=== PATIENT | male | born 1995 | race Caucasian/White ===

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

== ENCOUNTER 2020-07-12 19:42 | Emergency (ER) | payer SELFPAY ==
[~2020-07-12] VITALS: Ht 177.8 cm; Wt 63.3 kg
--- NOTE | 2020-07-12 20:31 | PHYS DOC ---
Past History Past Medical History: No Pertinent History (LORENA DEL VALLE APRN) Past Surgical History: No Surgical History (LORENA DEL VALLE APRN) Alcohol Use: Occasionally Drug Use: None (LORENA DEL VALLE APRN) General Adult EDM: Chief Complaint: OVERDOSE HPI: HPI: Patient is a 25-year-old male who presents with OD. Patient states that he took an Oxy this afternoon that he bought from someone on the street. Mom states "my daughter went to go check on him and was unable to wake him up". Daughter called EMS and patient was given Narcan. Mom brought patient to the emergency room to be monitored. 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 Patient denies wanting help for drug addiction. Patient states "I he can quit using on my own". Patient denies any medical history. Patient denies overdosing in the past. Patient is alert and oriented at this time. (LORENA DEL VALLE APRN) Review of Systems: Review of Systems: Constitutional: Denies fever or chills Eyes: Denies change in visual acuity HENT: Denies nasal congestion or sore throat Respiratory: Denies cough or shortness of breath Cardiovascular: Denies chest pain or edema GI: Denies abdominal pain, nausea, vomiting, bloody stools or diarrhea : Denies dysuria Musculoskeletal: Denies back pain or joint pain Integument: Denies rash Neurologic: Denies headache, focal weakness or sensory changes Endocrine: Denies polyuria or polydipsia Lymphatic: Denies swollen glands Psychiatric: Denies depression or anxiety (LORENA DEL VALLE APRN) Allergies: Allergies: Allergies Coded Allergies Type Severity Reaction Last Updated Verified No Known Drug Allergies 12/22/16 No (LORENA DEL VALLE APRN) Physical Exam: PE: Constitutional: Well developed, well nourished, no acute distress, non-toxic appearance. [] HENT: Normocephalic, atraumatic, bilateral external ears normal, oropharynx moist, no oral exudates, nose normal. [] Eyes: PERRLA, EOMI, conjunctiva normal, no discharge. [] Neck: Normal range of motion, no tenderness, supple, no stridor. [] Cardiovascular:Heart rate regular rhythm, no murmur [] Lungs & Thorax: Bilateral breath sounds clear to auscultation [] Abdomen: Bowel sounds normal, soft, no tenderness, no masses, no pulsatile masses. [] Skin: Warm, dry, no erythema, no rash. [] Back: No tenderness, no CVA tenderness. [] Extremities: No tenderness, no cyanosis, no clubbing, ROM intact, no edema. [] Neurologic: Alert and oriented X 3, normal motor function, normal sensory function, no focal deficits noted. [] Psychologic: Affect normal, judgement normal, mood normal. [] (LORENA DEL VALLE APRN) PE: Constitutional: Well developed, well nourished, no acute distress, non-toxic appearance HENT: Normocephalic, atraumatic Eyes: PERRL, EOMI, conjunctiva normal, no discharge, no nystagmus Neck: Normal range of motion, no tenderness, supple Lungs & Thorax: No respiratory distress, equal chest rise and fall Abdomen: Soft, no tenderness Skin: Warm, dry, no erythema, no rash Extremities: No tenderness, ROM intact, no edema Neurologic: Alert and oriented X 3, normal motor function, normal sensory function, no focal deficits noted Psychologic: Affect normal, judgment normal (YOANDY CLINTON DO) EKG: EKG: [] (LORENA DEL VALLE APRN) Radiology/Procedures: Radiology/Procedures: [] (LORENA DEL VALLE APRN) Radiology/Procedures: PROCEDURE: CHEST AP ONLY Study: XR CHEST 1V Indication: Leukocytosis. Comparison: None. Findings: Hazy/streaky densities at the left more so than right perihilar region. No dense consolidation. No pleural effusion or pneumothorax. Normal size of the cardiomediastinal silhouette. Impression: Streaky densities emanating from the left more so than right tosha. An infectious process such as viral bronchitis is a consideration. No confluent infiltrate to suggest an organizing pneumonia at this time. Electronically signed by: EVELYN RUSSELL MD (07/13/2020 12:30 AM) [facility] (YOANDY CLINTON DO) Heart Score: Risk Factors: Risk Factors: DM, Current or recent (<one month) smoker, HTN, HLP, family history of CAD, obesity. Risk Scores: Score 0 - 3: 2.5% MACE over next 6 weeks - Discharge Home Score 4 - 6: 20.3% MACE over next 6 weeks - Admit for Clinical Observation Score 7 - 10: 72.7% MACE over next 6 weeks - Early Invasive Strategies (LORENA DEL VALLE APRN) Course & Med Decision Making: Course & Med Decision Making Pertinent Labs and Imaging studies reviewed. (See chart for details) Patient is a 25-year-old male who presents with OD. Patient states that he took an Oxy this afternoon that he bought from someone on the street. Mom states "my daughter went to go check on him and was unable to wake him up". Daughter called EMS and patient was given Narcan. Mom brought patient to the emergency room to be monitored. 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 Patient denies wanting help for drug addiction. Patient states "I he can quit using on my own". Patient denies any medical history. Patient denies overdosing in the past. Patient is alert and oriented at this time. Patient is alert and oriented at this time, patient is sinus tach 105 bpm. He ambulated on his own into the emergency room. Poison Control Contacted for recommendation. Per poison control patient can be discharged to home when vitals have stabilized. Patient care transferred to Dr. Clinton (LORENA DEL VALLE APRN) Course & Med Decision Making 2199- Signout received from Lorena ROGEL for patient with history of accidental overdose. Report that poison control recommending observation 6 hours post ingestion. Labs reviewed. Leukocytosis noted. UA without signs of infection. CXR without focal pneumonia. Patient seen and evaluated by myself. Patient awake and reports feeling well. NO focal signs of infection appreciated. Patient continued monitoring until 6 hours post ingestion. Patient stable for discharge with outpatient follow-up with PCP/drug rehab. Drug rehab resources provided. Discussed findings and plan with patient, who acknowledges understanding and agreement. (YOANDY CLINTON DO) Dragon Disclaimer: Dragon Disclaimer: This electronic medical record was generated, in whole or in part, using a voice recognition dictation system. (LORENA DEL VALLE APRN) Departure Departure: Impression: Primary Impression: Accidental drug overdose Qualified Codes: T50.901A - Poisoning by unspecified drugs, medicaments and biological substances, accidental (unintentional), initial encounter Additional Impression: Leukocytosis Qualified Codes: D72.829 - Elevated white blood cell count, unspecified Disposition: 01 DC HOME SELF CARE/HOMELESS Condition: STABLE Referrals: PCP,NO (PCP) Patient Instructions: Alcohol and Drug Addiction, Finding Treatment, Drug Abuse, FAQs, Leukocytosis Additional Instructions: Please call [facility] at to seek help for your mental health and/or luis g/alcohol abuse. Please follow closely with your doctor for further evaluation and redraw of your abnormal White Blood Count Attending Signature Attending Signature I have personally interviewed and examined the patient. All charts, labs, and imaging studies were reviewed. I agree with the PA/[facility]'s findings, exam, and plan. (YOANDY CLINTON DO) LORENA DEL VALLE APRN Jul 12, 2020 20:31 YOANDY CLINTON DO Jul 13, 2020 00:46
[2020-07-12 21:10] LABS: BASO % 0 % (0-3); EOS % 0 % (0-3); HEMATOCRIT 44.2 % (39.0-53.0); HEMOGLOBIN 14.5 g/dL (13.0-17.5); LYMPH % 3 % (24-48); MEAN CORPUSCULAR HEMOGLOBIN 30 pg (25-35); MEAN CORPUSCULAR HGB CONC 33 g/dL (31-37); MEAN CORPUSCULAR VOLUME 91 fL (79-100); MONO # 1.6 x10^3/uL (0.0-1.1); MONO % 6 % (0-9); NEUT # 26.6 x10^3uL (1.8-7.7); NEUT % 91 % (31-73); PLATELET COUNT 470 x10^3/uL (140-400); RED BLOOD COUNT 4.85 x10^6/uL (4.30-5.70); RED CELL DISTRIBUTION WIDTH 14.2 % (11.5-14.5); WHITE BLOOD COUNT 29.3 x10^3/uL (4.0-11.0)
[2020-07-12 21:15] LABS: CALCIUM 8.9 mg/dL (8.5-10.1); CREATININE 1.1 mg/dL (0.7-1.3); POTASSIUM 4.1 mmol/L (3.5-5.1)
[2020-07-12 21:21] LABS: ALBUMIN 3.9 g/dL (3.4-5.0); ALBUMIN/GLOBULIN RATIO 1.1 (1.0-1.7); TOTAL BILIRUBIN 0.3 mg/dL (0.2-1.0); TOTAL PROTEIN 7.5 g/dL (6.4-8.2)
[2020-07-12 21:45] LABS: % LYMPHS 2 % (24-48); % MONOS 10 % (0-10); % SEGS 88 % (35-66); PLT ESTIMATE ADEQUATE (ADEQUATE)
[2020-07-13 00:21] LABS: BARBITURATES NEG (NEG); BENZODIAZEPINES NEG (NEG); CANNABINOIDS POS (NEG); COCAINE NEG (NEG); METHADONE NEG (NEG); OPIATES NEG (NEG); PHENCYCLIDINE NEG (NEG)
[2020-07-13 00:22] LABS: AMPHETAMINE/METHAMPHETAMINE NEG (NEG)
[2020-07-13 00:22] LABS: ACETAMIN < 2.0 mcg/mL (10-30); ETHANOL < 10 mg/dL (0-10)
[2020-07-13 00:30] VITALS: BP 106/46
--- NOTE | 2020-07-13 00:32 | RAD ---
Study: XR CHEST 1V Indication: Leukocytosis. Comparison: None. Findings: Hazy/streaky densities at the left more so than right perihilar region. No dense consolidation. No pl eural effusion or pneumothorax. Normal size of the cardiomediastinal silhouette. Impression: Streaky densities emanating from the left more so than right tosha. An infectious process such as chelly l bronchitis is a consideration. No confluent infiltrate to suggest an organizing pneumonia at this t nic. Electronically signed by: EVELYN RUSSELL MD (07/13/2020 12:30 AM) [facility]
[2020-07-13 00:39] LABS: CLARITY,URINE CLEAR; COLOR,URINE YELLOW
[2020-07-13 00:40] LABS: BACTERIA,URINE 0 /HPF (0-FEW); BILIRUBIN,URINE NEG (NEG); GLUCOSE,URINE 500 mg/dL (NEG); NITRITE,URINE NEG (NEG); RBC,URINE 0 /HPF (0-2); UROBILINOGEN,URINE 0.2 mg/dL (0.2 mg/dL); WBC,URINE RARE /HPF (0-4)
== END 2020-07-13 00:50 | disposition home or self-care (01) ==
LOC: ER 19:42
DX: T50.991A Poisoning by other drugs, medicaments and biological substances, accidental (unintentional), initial encounter (principal); D72.829 Elevated white blood cell count, unspecified; Y92.89 Other specified places as the place of occurrence of the external cause
CPT/HCPCS: 36415; 71045; 80053; 80307; 80329; 81001; 83735; 85007; 85025; 99284; G0480

== ENCOUNTER 2020-08-20 01:58 | Emergency (ER) | payer SELFPAY ==
[~2020-08-20] VITALS: Ht 177.8 cm; Wt 63.3 kg
--- NOTE | 2020-08-20 02:04 | PHYS DOC ---
Past History Past Medical History: No Pertinent History Past Surgical History: No Surgical History Alcohol Use: Occasionally Drug Use: None General Adult EDM: Chief Complaint: DENTAL PROBLEM HPI: HPI: "... I got the severe dental pain... I have had it for months but it is much worse tonight..." Patient is a 25 year old male who presents with above hx and complaints of dental pain. Patient localizes pain in and around teeth 14 and 15. Patient has gingivitis and other areas of decay. Does have some adenopathy at the angle of mandible. The left side of face is somewhat swollen and tender. No trismus. No pointing abscess abscess. Patient denies any history of immunosuppression. No history of travel or significant ill contacts. Patient has not noted finding of recent narcotic overdose back on 07/12/20. Patient has yet not scheduled a dental appointment. Patient is accompanied with his mother. Review of Systems: Review of Systems: Constitutional: Denies fever or chills Eyes: Denies change in visual acuity HENT: Complains of nasal congestion and dental pain Respiratory: Denies cough or shortness of breath Cardiovascular: Denies chest pain or edema GI: Denies abdominal pain, nausea, vomiting, bloody stools or diarrhea : Denies dysuria Musculoskeletal: Denies back pain or joint pain Integument: Denies rash Neurologic: Denies headache, focal weakness or sensory changes Endocrine: Denies polyuria or polydipsia Lymphatic: Denies swollen glands Psychiatric: Denies depression or anxiety Family History: Family History: Noncontributory to presentation Current Medications: Current Meds: See nursing for home meds Allergies: Allergies: Allergies Coded Allergies Type Severity Reaction Last Updated Verified No Known Drug Allergies 12/22/16 No Physical Exam: PE: Constitutional: Well developed, well nourished, reports acute distress, non- toxic appearance. [] HENT: Normocephalic, atraumatic, bilateral external ears normal, oropharynx mo ist, no oral exudates, nose swollen turbinates. Multiple dental caries. Denied pain is localized to the area of teeth 14 and 15 Eyes: PERRLA, EOMI, conjunctiva normal, no discharge. [] Neck: Normal range of motion, no tenderness, supple, no stridor. Mild adenopathy on the left angle of mandible and upper neck Cardiovascular:Heart rate regular rhythm, no murmur [] Lungs & Thorax: Bilateral breath sounds equal apex on auscultation [] Abdomen: Bowel sounds normal, soft, no tenderness, no masses, no pulsatile masses. [] Skin: Warm, dry, no erythema, no rash. [] Back: No tenderness, no CVA tenderness. [] Extremities: No tenderness, no cyanosis, no clubbing, ROM intact, no edema. [] Neurologic: Alert and oriented X 3, normal motor function, normal sensory function, no focal deficits noted. [] Psychologic: Affect anxious, judgement normal, mood normal. [] EKG: EKG: [] Radiology/Procedures: Radiology/Procedures: [] Heart Score: C/O Chest Pain: N/A Risk Factors: Risk Factors: DM, Current or recent (<one month) smoker, HTN, HLP, family history of CAD, obesity. Risk Scores: Score 0 - 3: 2.5% MACE over next 6 weeks - Discharge Home Score 4 - 6: 20.3% MACE over next 6 weeks - Admit for Clinical Observation Score 7 - 10: 72.7% MACE over next 6 weeks - Early Invasive Strategies Course & Med Decision Making: Course & Med Decision Making Pertinent Labs and Imaging studies reviewed. (See chart for details) Rinse mouth with Listerine 4 times a day. Take Tylenol and ibuprofen for pain. Use sugarless gum to cover teeth that are sensitive this sometimes helps with dental pain. Must follow-up with a dentist. Take Keflex 500x3 times a day Impression: 1. Dental pain Teeth 14 and 15 2. Dental infection [] Dragon Disclaimer: Dragon Disclaimer: This electronic medical record was generated, in whole or in part, using a voice recognition dictation system. Departure Departure: Referrals: PCP,NO (PCP) Scripts Cephalexin (KEFLEX) 750 Mg Capsule 500 MG PO TID for dental infection for 10 Days, #30 CAP Prov: EDWINA ACUÑA MD 08/20/20 EDWINA ACUÑA MD Aug 20, 2020 02:04
[2020-08-20 02:15] VITALS: BP 149/80
[2020-08-20] MEDS ORDERED: oxyCODONE/APAP 5/325 1 TAB TABLET PO ONE (02:15)
[2020-08-20] MEDS ORDERED: KETOROLAC 60 MG/2 ML VIAL. IM ONE (02:15)
[2020-08-20] MEDS ORDERED: cefTRIAXone IM 1 GM VIAL IM ONE (02:15)
[2020-08-20] MEDS ORDERED: CEPH750C9 PO (02:15)
== END 2020-08-20 02:55 | disposition home or self-care (01) ==
LOC: ER 01:58
DX: K04.7 Periapical abscess without sinus (principal)
CPT/HCPCS: 96372; 99284; J0696; J1885